=== PATIENT | female | born 1990 | race Asian ===

== ENCOUNTER 2025-05-31 09:33 | Emergency (ER) | payer OTHER, SELFPAY ==
[2025-05-31] VITALS (11 sets, daily range): BP systolic 93–116; BP diastolic 58–71; PULSE 74–87; RESP 18–24; TEMP 36.6; O2SAT 97–100; BMI 24.1
--- NOTE | 2025-05-31 09:45 | ED.ALLEREA ---
HPI - Allergic Reaction General Chief complaint: Allergic Reaction Stated complaint: Bee sting reaction; stung on ankle; red skin Time Seen by Provider: 05/31/25 09:44 History of Present Illness HPI narrative: 34-year-old female with no significant medical history was running a marathon when she was bitten left ankle by a bee and given 50 of Benadryl 0.3 mg IM of epi prior to arrival while in registration sitting she had a syncopal episode. Patient is now alert and oriented having any chest pain shortness breath or difficulty swallowing speaking. Other than what is stated 14 point review of system is negative. Related Data Previous Rx's ?Medication ?Instructions ?Recorded epinephrine 0.3 mg/0.3 mL 0.3 mg (0.3 mL) IM Q5-15M PRN 05/31/25 injection, auto-injector anaphylaxis #2 ea prednisone 20 mg tablet 20 mg PO BID #10 tabs 05/31/25 Allergies Allergy/AdvReac Type Severity Reaction Status Date / Time bee venom protein (honey bee) Allergy Severe Anaphylaxis Verified 05/31/25 10:00 amoxicillin Allergy Mild Hives Verified 05/31/25 10:00 Review of Systems Review of Systems ROS Unobtainable: All systems reviewed & are unremarkable except as noted in HPI and below Patient History Social History Smoking Status: Never smoker Exam Narrative Exam Narrative: GENERAL: [34] year old patient appears stated age. Well-developed patient, in mild distress. HEAD: Atraumatic. Normocephalic. EYES: Pupils equal round and reactive. Extraocular motions intact. No scleral icterus. No injection or drainage. ENT: Nose without bleeding, purulent drainage. Throat without erythema, tonsillar hypertrophy or exudate. Airway patent. NECK: Trachea midline. Non tender CARDIOVASCULAR: Regular rate and rhythm without murmurs, gallops, or rubs. RESPIRATORY: Clear to auscultation. Breath sounds equal bilaterally. No wheezes, rales, or rhonchi. GASTROINTESTINAL: Abdomen soft, non-tender, nondistended. EXTREMITIES: No edema or joint tenderness. BACK: Nontender without deformity or crepitance. No flank tenderness. NEURO: AOx3. SKIN: No rash or erythema of visible areas Initial Vital Signs Initial Vital Signs: Vital Signs Pulse Rate 74 05/31/25 09:41 Pulse Oximetry 98 05/31/25 09:41 Course Orders Ordered: Famotidine (Famotidine 20 Mg/2 Ml Vial) 20 mg IV NOW LIZ Last Admin: 05/31/25 09:53 Dose: 20 mg Documented By: NAT Discontinued Medications Epinephrine HCl (Epinephrine 1 Mg/Ml) 0.3 mg IM NOW ONE Stop: 05/31/25 09:45 Last Admin: 05/31/25 09:52 Dose: 0.3 mg Documented By: NAT Lactated Ringer's (Lactated Ringers) 1,000 mls @ 1,000 mls/hr IV BOLUS ONE Stop: 05/31/25 10:43 Last Infusion: 05/31/25 11:05 Dose: Infused Documented By: Admin: 05/31/25 09:53 Dose: 1,000 mls/hr Documented By: NAT Methylprednisolone (Methylprednisolone Succ 125 Mg/2 Ml Vial) 125 mg IV NOW ONE Stop: 05/31/25 09:45 Last Admin: 05/31/25 09:53 Dose: 125 mg Documented By: NAT Vital Signs Vital signs: Vital Signs - 8 hr 05/31/25 09:41 05/31/25 09:42 05/31/25 09:42 Temperature Pulse Rate 74 77 Respiratory Rate 20 Blood Pressure 93/58 L Pulse Oximetry 98 97 Oxygen Delivery Method 05/31/25 09:48 05/31/25 09:48 05/31/25 09:59 Temperature 98 F Pulse Rate 80 87 Respiratory Rate 22 18 Blood Pressure 94/58 L 94/58 L Pulse Oximetry 99 99 Oxygen Delivery Method Room Air 05/31/25 10:00 05/31/25 10:00 05/31/25 10:15 Temperature Pulse Rate 77 Respiratory Rate 22 Blood Pressure 102/61 102/67 Pulse Oximetry 99 Oxygen Delivery Method 05/31/25 10:15 05/31/25 10:30 05/31/25 10:30 Temperature Pulse Rate 75 77 Respiratory Rate 18 Blood Pressure 110/70 Pulse Oximetry 100 100 Oxygen Delivery Method MDM - Allergic Reaction MDM Narrative Medical decision making narrative: All lab work vital signs nurse triage note medication list previous ER visits in all imaging studies reviewed. Patient given LR 1 L bolus Pepcid 20 mg IV Solu-Medrol 125 mg IV epi 0.3 mg IM here. Patient has had no issues and feels much better and is ready to go home. We will refill EpiPen at this time. And DC home on prednisone for 5 days and refill EpiPen rx. Follow up PCP next week if no improvement in symptoms. Differential diagnosis allergic reaction versus anaphylactic. Discharge Plan Departure Patient Disposition: Home Clinical Impression: Syncope, vasovagal Allergic reaction Qualifiers: Encounter type: initial encounter Qualified Code(s): T78.40XA - Allergy, unspecified, initial encounter Instructions: DI for Anaphylaxis Activity Restrictions/Additional Instructions: Return with new or worsening symptoms. Follow up PCP next week if no improvement in symptoms. Take medicines as directed. Prescriptions: New epinephrine 0.3 mg/0.3 mL auto-injector 0.3 mg IM Q5-15M PRN (Reason: anaphylaxis) Qty: 2 0RF Rx Instructions: do not exceed 3 doses per episode prednisone 20 mg tablet 20 mg PO BID Qty: 10 0RF Stand Alone Forms: Patient Portal/API
[2025-05-31] MEDS: EPINEPHrine 1 MG/ML 0.3 MG IM (09:52)
[2025-05-31] MEDS: FAMOTIDINE 20 MG/2 ML VIAL IV (09:53)
[2025-05-31] MEDS: methylPREDNISolone succ 125 MG/2 ML VIAL IV (09:53)
[2025-05-31] MEDS: LACTATED RINGERS 1,000 ML 1000 ML IV (09:53)
== END 2025-05-31 11:47 | disposition home or self-care (01) ==
PROVIDERS: Emergency Provider Family Medicine
DX: T78.40XA Allergy, unspecified, initial encounter (principal); W57.XXXA Bitten or stung by nonvenomous insect and other nonvenomous arthropods, initial encounter; R55 Syncope and collapse
CPT/HCPCS: 96361; 96372; 96374; 96375; 99284; J0165; J2919